=== PATIENT | female | born 1935 | race Caucasian/White ===

== ENCOUNTER 2017-02-15 10:23 | Emergency (ER) | payer OTHER ==
[~2017-02-15] VITALS: Ht 154.9 cm; Wt 72.6 kg
--- NOTE | 2017-02-15 10:45 | ED CARDIAC/CP/PALPITATIONS ---
History of Present Illness General Chief Complaint: Chest Pain Stated Complaint: CP Source: patient, family, old records Exam Limitations: no limitations Vital Signs & Intake/Output Vital Signs & Intake/Output ED Intake and Output 02/16 0000 02/15 1200 Intake Total Output Total Balance Patient 160 lb Weight Weight Reported by Patient Measurement Method Allergies Coded Allergies: NO KNOWN ALLERGIES (08/20/15) Reconcile Medications Aspirin (Ecotrin*) 81 MG TABLET.DR 1 TAB PO 1700 HEART HEALTH (Reported) Atorvastatin Calcium 10 MG TABLET 1 TAB PO QPM CHOLESTEROL (Reported) Triage Note: PT TO ED C/O LEFT SIDED C/P STARTING LAST NIGHT. WORSE THIS AM. DENIES N/V. STATES SHE FEELS LIKE SHE CAN'T BREATH. RA SATS 99%. EKG DONE. STATES SHARP PAIN, COMES AND GOES. Triage Nurses Notes Reviewed? yes HPI: This is an 81-year-old female with past medical history significant for hypercholesterolemia and unknown venous ablative procedures with what sounds like superficial phlebitis in her lower extremity who comes in for chief complaint of chest pain. Patient states that she was in usual health until yesterday. She felt like she had worsening GERD last night after dinner. She stated she took many antacids but felt no relief in her symptoms. She went to sleep later than usual because of her discomfort and then woke up around 5 or 6 AM and experienced a sharp stabbing pleuritic type chest pain under her left breast and sternum. Patient states that pain is a stabbing quality, positional dependent, reproducible to palpation, worse with exertion, and at its worst was 8 out of 10. Now 3 out of 10. The pain is remained with varying degrees of severity since this a.m. Patient denies any recent travel, sick contacts, any prodromal illness prior to the GERD-like sensation last night. Denies any nausea, vomiting, diarrhea. Denies any shortness of breath. Denies weakness, confusion or change in bladder or bowel habits. (CLAIRE MCCONNELL,ZANDRA) Past History Travel History Traveled to [place] past 21 day No Medical History Any Pertinent Medical History? see below for history Cardiovascular: hyperlipidemia Musculoskeletal: osteoporosis Surgical History Surgical History: N Psychosocial History What is your primary language Uzbek Tobacco Use: Never used ETOH Use: denies use Illicit Drug Use: denies illicit drug use Family History Hx Contributory? No (ZANDRA RANGEL MD) Review of Systems Review of Systems Constitutional: Denies: chills, fever, malaise, weakness. EENTM: Reports: no symptoms. Respiratory: Denies: cough, hemoptysis, orthopnea, short of breath, sputum production, wheezing. Cardiovascular: Reports: chest pain. Denies: edema, orthopena, palpitations, syncope. GI: Denies: abdominal pain, bloating, constipation, diarrhea, nausea, vomiting. Genitourinary: Reports: no symptoms. Musculoskeletal: Denies: back pain, joint pain, joint swelling, muscle pain. (CLAIRE MCCONNELL,ZANDRA) Physical Exam Physical Exam General Appearance: no apparent distress, alert, awake, comfortable Head: atraumatic, normal appearance Eyes: Bilateral: normal appearance, PERRL, EOMI. Ears, Nose, Throat: normal pharynx Neck: normal inspection, supple Respiratory: normal breath sounds, lungs clear, tender to palpation in sternum and under l. breast and in axillary area Cardiovascular: regular rate/rhythm Gastrointestinal: soft, non-tender Core Measures ACS in differential dx? Yes ASA ordered for poss ACS? Yes-ordered Severe Sepsis Present: No Septic Shock Present: No (CLAIRE MCCONNELL,ZANDRA) Progress Differential Diagnosis: musculoskeletal pain, myocarditis, pancreatitis, pericarditis, pneumonia, PUD/GERD Plan of Care: Orders Procedure Date/time Status Heart Healthy Diet 02/15 D Active TROPONIN LEVEL 02/15 1400 Complete EKG 02/15 1400 Active Add-on Test (ER Only) 02/15 1109 Active Add-on Test (ER Only) 02/15 1107 Active TROPONIN LEVEL 02/15 1036 Complete PARTIAL THROMBOPLASTIN TIME 02/15 1036 Complete PROTHROMBIN TIME 02/15 1036 Complete LIPASE 02/15 1036 Complete D-DIMER 02/15 1036 Complete COMPREHENSIVE METABOLIC PANEL 02/15 1036 Complete CBC WITHOUT DIFFERENTIAL 02/15 1036 Complete B-TYPE NATRIURETIC PEP (BNP) 02/15 1036 Complete EKG 02/15 1024 Active Laboratory Tests 02/15/17 1345: Troponin I < 0.01 02/15/17 1100: Anion Gap 10, Estimated GFR 60, BUN/Creatinine Ratio 22.2, Glucose 110 H, Calcium 9.8, Total Bilirubin 0.6, AST 24, ALT 40, Alkaline Phosphatase 104, Troponin I < 0.01, Xba-V-Opabmhdoysv Pept 129 H, Total Protein 7.2, Albumin 4.2 , Globulin 3.0, Albumin/Globulin Ratio 1.4, Lipase 85, PT 10.0, INR 0.95, APTT 27, D-Dimer 289 H, CBC w Diff NO MAN DIFF REQ, RBC 4.43, MCV 87.9, MCH 29.4, RDW 14.7 H, MPV 9.2, Gran % 57.5, Lymphocytes % 34.1, Monocytes % 6.2, Eosinophils % 1.6, Basophils % 0.6, Absolute Granulocytes 4.0, Absolute Lymphocytes 2.4, Absolute Monocytes 0.4, Absolute Eosinophils 0.1, Absolute Basophils 0, PUBS MCHC 33.4 REPEAT TROPONIN/EKG WNL. U/S NEGATIVE. PATIENT PAIN FREE AFTER TORADOL. SUSPECT MUSCULOSKELETAL ORIGIN OF PAIN. WILL DISCHARGE HOME WITH F/U PRIMARY CARE. (MOISÉS MCCONNELL,STORMY) Initial ED EKG: normal axis Comments: 11:15 pending lab results and imaging 11:45 Ordere venous doppler bilat LE. 1:51 pm all tests so far have been unremarkable for any acute intrapulmonary or intracardiac process. Dopplers negative. Pending second troponin. 2: 50: second troponing negative. Pt can be dc (CLAIRE MCCONNELL,ZANDRA) Diagnostic Imaging: Viewed by Me: Radiology Read, Ultrasound. Discussed w/RAD: Radiology Read, Ultrasound. Radiology Impression: PATIENT: MARTINEZ BLAIR PRESENT AGE: 81 PATIENT ACCOUNT NO: [id number] : 34 LOCATION: [facility] ORDERING PHYSICIAN: ZANDRA RANGEL MD SERVICE DATE: 02/15/17 EXAM TYPE: US - US-EXT BILAT VENOUS DOPPLER EXAMINATION: US TRIPLEX OF LOWER EXTREMITIES, BILATERAL CLINICAL INFORMATION: Shortness of breath, tachycardia COMPARISON: None TECHNIQUE: Color-flow triplex imaging with spectral analysis and compression Doppler were performed on the lower extremities. FINDINGS: Respiratory variation, normal compression and augmented flow are noted throughout the lower extremities. The visualized common femoral vein, superficial femoral vein, profunda femoral vein, popliteal vein and midcalf peroneal and posterior tibial venous segments show no evidence of deep venous thrombosis. There is no Brantley's cyst. IMPRESSION: Normal triplex scan without evidence of deep venous thrombosis involving the lower extremities. DICTATED BY: KIM JUAREZ MD DATE/TIME DICTATED:02/15/171201 OPTIONS ADVISOR:RYAN DATE/TIME TRANSCRIBED:02/15/171201 CONFIDENTIAL, DO NOT COPY WITHOUT APPROPRIATE AUTHORIZATION. <Electronically signed in Other Vendor System> SIGNED BY: KIM JUAREZ MD 02/15/17 1209 CXR Impression: PATIENT: MARTINEZ BLAIR PRESENT AGE: 81 PATIENT ACCOUNT NO: [id number] : 34 LOCATION: [facility] ORDERING PHYSICIAN: STORMY CURIEL MD SERVICE DATE: 02/15/17 EXAM TYPE: RAD - XRY -CHEST XRAY, PA AND LATERAL EXAMINATION: XR CHEST CLINICAL INFORMATION: Chest pain, shortness of breath COMPARISON: None TECHNIQUE: 2 views of the chest were obtained. FINDINGS: The heart size is within normal limits. Blunting of the left costophrenic angle on the frontal view is likely related to epicardial fat. The mediastinal contours are within normal range. There is no focal consolidation or effusion. There is minimal biapical pleural-parenchymal thickening. IMPRESSION: No acute cardiopulmonary process. DICTATED BY: KIM JUAREZ MD DATE/TIME DICTATED:02/15/171146 OPTIONS ADVISOR:RYAN DATE/TIME TRANSCRIBED:1146 CONFIDENTIAL, DO NOT COPY WITHOUT APPROPRIATE AUTHORIZATION. < Electronically signed in Other Vendor System> SIGNED BY: KIM JUAREZ MD 1153 Repeat EKG: unchanged (STORMY CURIEL MD) Departure Departure Disposition: HOME OR SELF CARE Condition: Stable Clinical Impression Primary Impression: Musculoskeletal chest pain Referrals: ROSALINO MCCONNELL,ONDINA (PCP/Family) Additional Instructions: Follow up with your PCP in one week. Departure Forms: Customer Survey General Discharge Information (ZANDRA RANGEL MD) Resident Co-Sign Statement Statement: ED Attending supervision documentation- [X] I saw and evaluated the patient. I have also reviewed all the pertinent lab results and diagnostic results. I agree with the findings and the plan of care as documented in the Resident's documentation. [X] I have reviewed the ED Record and agree with the Resident's documentation. [] Additions or exceptions (if any) to the Resident's note and plan are summarized below: [] (LIONEL CURIEL MDI) Critical Care Note Critical Care Note Critical Care Time: non-applicable (CLAIRE MCCONNELL,ZANDRA)
[2017-02-15 11:28] LABS: ABSOLUTE BASOPHIL COUNT 0 /CUMM (0.0-0.2); ABSOLUTE EOSINOPHIL COUNT 0.1 /CUMM (0.0-0.7); ABSOLUTE LYMPH COUNT 2.4 /CUMM (1.2-3.4); ABSOLUTE MONOCYTE COUNT 0.4 /CUMM (0.10-0.60); BASOPHIL % 0.6 % (0.0-2.0); EOSINOPHIL % 1.6 % (0-5); GRANULOCYTE % 57.5 % (42.2-75.2); HEMATOCRIT 38.9 % (37-47); MEAN CORPUSCULAR HGB 29.4 PG (27.0-31.0); MEAN CORPUSCULAR HGB CONC 33.4 G/DL (33.0-37.0); MEAN CORPUSCULAR VOLUME 87.9 FL (81.0-99.0); MEAN PLATELET VOLUME 9.2 FL (7.4-10.4); PLATELET COUNT 218 /CUMM (130-400); RBC DISTRIBUTION WIDTH 14.7 % (11.5-14.5); RED BLOOD CELL CT 4.43 /CUMM (4.20-5.40)
[2017-02-15 11:38] LABS: PTT 27 SEC (25-37)
--- NOTE | 2017-02-15 11:53 | RADIOLOGY REPORT ---
EXAMINATION: XR CHEST CLINICAL INFORMATION: Chest pain, shortness of breath COMPARISON: None TECHNIQUE: 2 views of the chest were obtained. FINDINGS: The heart size is within normal limits. Blunting of the left costophrenic angle on the frontal view is likely related to epicardial fat. The mediastinal contours are within normal range. There is no focal consolidation or effusion. There is minimal biapical pleural-parenchymal thickening. IMPRESSION: No acute cardiopulmonary process.
--- NOTE | 2017-02-15 12:09 | ULTRASOUND REPORT ---
EXAMINATION: US TRIPLEX OF LOWER EXTREMITIES, BILATERAL CLINICAL INFORMATION: Shortness of breath, tachycardia COMPARISON: None TECHNIQUE: Color-flow triplex imaging with spectral analysis and compression Doppler were performed on the lower extremities. FINDINGS: Respiratory variation, normal compression and augmented flow are noted throughout the lower extremities. The visualized common femoral vein, superficial femoral vein, profunda femoral vein, popliteal vein and midcalf peroneal and posterior tibial venous segments show no evidence of deep venous thrombosis. There is no Brantley's cyst. IMPRESSION: Normal triplex scan without evidence of deep venous thrombosis involving the lower extremities.
[2017-02-15] MEDS ORDERED: ATORVASTATIN CA10 M1 PO (14:08)
[2017-02-15] MEDS ORDERED: ASPIRIN EC81 M1 PO (14:09)
[2017-02-15 15:10] VITALS: BP 181/86
== END 2017-02-15 15:14 ==
LOC: ERH 10:23
PROVIDERS: Emergency Medicine
DX: R07.89 Other chest pain (principal)
CPT/HCPCS: 93005; 93010; 93970; 96374; J1885; J3490